=== PATIENT | male | born 1965 ===

== ENCOUNTER 2022-12-14 08:00 | Day surgery (SDC) | payer OTHER | END 2022-12-14 14:35 | disposition home or self-care (01) | LOC: AMB-ENDOS 08:00 → CIR.AMB 14:00 → AMB-ENDOS 14:35 | PROVIDERS: ATTEND Colon & Rectal Surgery | DX: D12.3 Benign neoplasm of transverse colon (principal); K57.30 Diverticulosis of large intestine without perforation or abscess without bleeding; K57.32 Diverticulitis of large intestine without perforation or abscess without bleeding; K62.5 Hemorrhage of anus and rectum; R19.4 Change in bowel habit; Z20.822 Contact with and (suspected) exposure to COVID-19 ==